=== PATIENT | male | born 1970 | race Caucasian/White ===

== ENCOUNTER → 2016-08-29 | Outpatient (CLI) | payer OTHER ==
[~2016-08-29] MED LIST: ASPIRIN EC81 MG PO; AZITHROMYCIN250 MG PO; CIALIS5 MG PO; CIPRO 500MG TA500 MG PO; DILAUDID4 MG PO; EFFIENT10 M2 PO; HCTZ/LISINOPRIL1 TA3 PO; KEFLEX 500MG.500 MG PO; LEVAQUIN500 MG PO; LIPITOR80 MG PO; LISINOPRIL 10MG10 MG PO; LISINOPRIL10 MG PO; MEDROL 4MG. DOSE4 MG PO; METOPROLOL SUCC25 M2 PO; METOPROLOL TAR100 MG PO; PHENERGAN 25MG.25 M1 PO; TESSALON PERLE100 M1 PO; TESSALON PERLE100 MG PO; TORADOL10 M1 PO
[2016-08-29 12:00] LABS: BILIRUBIN, INDIRECT 0.56 mg/dL (0-0.9)
== END ==
LOC: LAB 09:18
PROVIDERS: Internal Medicine Cardiovascular Disease
DX: I10 Essential (primary) hypertension (principal)